=== PATIENT | male | born 1955 | race Two or more races ===

== ENCOUNTER 2019-09-29 09:26 | Emergency (ER) | payer OTHER ==
[~2019-09-29] VITALS: Ht 162.6 cm; Wt 90.9 kg
[2019-09-29 09:46] VITALS: BP 162/91
--- NOTE | 2019-09-29 10:29 | RAD ---
Noncontrast CT scan of the head for fall, hit left for head, no loss of consciousness. TECHNIQUE: CT scan of the head is obtained without IV contrast. FINDINGS: There is no evidence of acute territorial infarction, or intracranial hemorrhage. There is no mass, mass effect, or midline shift. The ventricles and subarachnoid spaces are grossly unremarkable. No extra axial fluid collection identified. The posterior fossa is grossly unremarkable. The brainstem, bilateral orbits, mastoid air cells, and visualized paranasal sinuses are all unremarkable as well. No osseous abnormalities are seen. There is a small extracranial soft tissue hematoma in the left frontal region. IMPRESSION: 1. Small extra cranial soft tissue hematoma in left frontal region. No acute intracranial abnormalities. Para PQRS Compliance Statement: One or more of the following individualized dose reduction techniques were utilized for this examination: 1. Automated exposure control 2. Adjustment of the mA and/or kV according to patient size 3. Use of iterative reconstruction technique Electronically signed by: Thuan Ledezma MD (09/29/2019 10:26 AM) [id number]
--- NOTE | 2019-09-29 10:36 | PHYS DOC ---
Past Medical History Past Medical History: Other Additional Past Medical Histor: EPILEPTIC,SPINAL STENOSIS Past Surgical History: Cholecystectomy Additional Past Surgical Histo: RIGHT KNEE Smoking Status: Never Smoker Alcohol Use: None General Adult EDM: Chief Complaint: MECHANICAL FALL HPI: HPI: Patient is a 64 year old male who presents with closed head injury. Patient was walking at work yesterday and fell hitting the front of his head. Since then he has had some confusion. He denies any nausea, vomiting, loss of consciousness. He does have some bilateral neck pain but denies any midline neck pain. He has no numbness or weakness in any of his extremities. states that his face appears normal. She states that the confusion comes and goes. He does not have difficulty with walking. He tried to see his physician at work who stated he needed to come to the emergency room to have a CT of his head. Patient is not on any blood thinners. He denies any headache. Review of Systems: Review of Systems: General: Denies fever, chills, sweats, fatigue Eyes: Denies drainage, blurred vision, eye redness HENT: Denies rhinorrhea, sore throat, earache Respiratory: Denies cough, shortness of breath, wheezing Cardiac: Denies edema, palpitations, chest pain GI: Denies abdominal pain, Nausea, vomiting MSK: Denies back pain, neck pain Skin: Denies rash, jaundice Neuro: Denies headache, dizziness reports confusion Psychiatric: Denies SI/HI Heart Score: Risk Factors: Risk Factors: DM, Current or recent (<one month) smoker, HTN, HLP, family history of CAD, obesity. Risk Scores: Score 0 - 3: 2.5% MACE over next 6 weeks - Discharge Home Score 4 - 6: 20.3% MACE over next 6 weeks - Admit for Clinical Observation Score 7 - 10: 72.7% MACE over next 6 weeks - Early Invasive Strategies Allergies: Allergies: Allergies Coded Allergies Type Severity Reaction Last Updated Verified No Known Drug Allergies 09/29/19 No Physical Exam: PE: General: Awake, alert, NAD. Well Nourished, well hydrated. Cooperative HEENT: Hematoma to left forehead, EOMI, PERRL, airway patent, moist oral mucosa Neck: Supple, trachea midline Respiratory: CTA bilaterally, normal effort, no wheezing/crackles CV: RRR, no murmur, cap refill <2 GI: Soft, nondistended, nontender, no masses MSK: No obvious deformities Skin: Warm, dry, intact Neuro: A&O x3, speech NL, 5 out of 5 strength and all 4 extremities proximally and distally, normal gait, cranial nerves II through XII intact Psych: Normal affect, normal mood, not suicidal or homicidal Current Patient Data: Vital Signs: Vital Signs Date Time Temp Pulse Resp B/P (MAP) Pulse Ox O2 Delivery O2 Flow Rate FiO2 09/29/19 09:46 98.1 71 20 162/91 (114) 95 Room Air 98.1 EKG: EKG: [] Radiology/Procedures: Radiology/Procedures: [] Course & Med Decision Making: Course & Med Decision Making Pertinent Labs and Imaging studies reviewed. (See chart for details) Patient is a 64-year-old male presents the emergency room after having a fall yesterday. He has been having intermittent confusion since that time. Given his age and his symptoms we will do a CT head to rule out an intracranial bleed. CT is negative. This is likely related to a concussion. I have discussed with him that he should avoid screen time. We have discussed the signs and symptoms to look for for when he should return. I have discussed with him that he will need to follow-up with his primary care physician for concussion. CT was printed out for his physician and patient will be discharged home. Patient's test results and vitals while in the ED were fully reviewed and discussed with the patient. Patient is stable and at this time does not need admission to the hospital. We have discussed strict return precautions and the importance of following up with their Primary Care Physician. Patient stated understanding and was given an opportunity to ask any questions. Patient is in agreement with plan. Dragon Disclaimer: Dragon Disclaimer: This electronic medical record was generated, in whole or in part, using a voice recognition dictation system. Departure Departure Impression: Primary Impression: Closed head injury Disposition: 01 HOME, SELF-CARE Condition: STABLE Referrals: [facility] (PCP) Patient Instructions: Concussion and Brain Injury Justicifation of Admission Dx: Justifications for Admission: Justification of Admission Dx: ORLANDO Goode MD Sep 29, 2019 10:36
== END 2019-09-29 10:52 | disposition home or self-care (01) ==
LOC: ER 09:26
DX: S00.83XA Contusion of other part of head, initial encounter (principal); R41.0 Disorientation, unspecified; W18.09XA Striking against other object with subsequent fall, initial encounter; Y93.01 Activity, walking, marching and hiking; Y92.89 Other specified places as the place of occurrence of the external cause; Y99.8 Other external cause status
CPT/HCPCS: 70450; 99284